=== PATIENT | female | born 1985 ===

== ENCOUNTER → 2020-04-04 14:10 | Outpatient (CLI) | payer OTHER, SELFPAY ==
--- NOTE | 2020-04-04 | DI.US.S_ITS ---
PROCEDURE: US OB >= 14 WEEKS FETUS INDICATIONS: ANATOMY SCAN OUTSIDE/PRIOR DATING DATA: First dating scan (date and location): 04/04/2020 . Estimated date of delivery (OTONIEL) from first dating scan: 08/14/2020 . TECHNIQUE: Real-time scanning was performed of the fetus, with image documentation and biometric measurements. Endovaginal scanning: No COMPARISON: None. FINDINGS: General: A single living intrauterine gestation is present. Presentation: Vertex. Placenta: Placental position is anterior , without previa. Amniotic fluid index: 10.6 cm, normal range is 5-24 cm. heart rate: 136 beats per minute. Maternal cervical canal: 5.1 cm long. Normal lower limit is 2.5 cm. biometrics: Biparietal diameter: 20 weeks 3 Head circumference: 20 weeks 5 Abdominal circumference: 21 weeks Femur length: 22 weeks 2 days Estimated gestational age from initial scan: N/a Composite gestational age from present scan: 21 weeks 1 day Estimated weight and percentile: 424 g; Measurement variability for biometric dating: +/- 7 days from 14 weeks to 15 weeks 6 days gestation, +/- 10 days from 16 weeks to 21 weeks 6 days gestation, +/- 2 weeks from 22 weeks to 27 weeks 6 days gestation, +/- 3 weeks for 28 weeks gestation or later. weight reference: 4500 g or EFW >90/95% is considered macrosomia or large for gestational age. EFW <10% is small for gestational age. EFW 5% or less is considered intra-uterine growth restriction. Anatomic survey: Neuro: Ventricles are non-dilated at less than 10 mm. Cisterna magna is normal at 3-11 mm. Cerebellum is normal in size and morphology. Nuchal skin fold: Normal at less than 6 mm between 14-21 weeks gestational age. Face: Nose and lips, facial profile are normal. Spine: No evidence for spina bifida. Heart: 4-chambered heart is present, with normal ventricular outflow tracts. Diaphragm: Diaphragm is intact. Stomach: Left-sided stomach is present. Kidneys: No hydronephrosis. Normal is less than 5 mm in 2nd trimester, less than 7 mm in 3rd trimester. Cord: 3-vessel cord has orthotopic insertion. Bladder: Normal in size. Extremities: All 4 extremities identified. IMPRESSION: 1. Single living IUP with mean composite gestational age of 21 weeks 1 day corresponding to ultrasound OTONIEL of 08/14/2020. 2. Normal anatomic survey. Dictated by: Ye Noyola RR Interpreted: Dyllan Johansen MD on 04/04/2020 at 15:48 Approved by: Dyllan Johansen M.D. on 04/04/2020 at 16:35
== END ==
PROVIDERS: Referring Provider Midwife; Visit Provider Midwife
DX: Z34.92 Encounter for supervision of normal pregnancy, unspecified, second trimester (principal); Z3A.21 21 weeks gestation of pregnancy
CPT/HCPCS: 76811